=== PATIENT | male | born 1955 | race Caucasian/White ===

== ENCOUNTER 2018-04-10 08:02 | Emergency (ER) | END 2018-04-10 09:30 | disposition home or self-care (01) ==

== ENCOUNTER 2018-04-15 19:46 | Emergency (ER) | END 2018-04-15 22:45 | disposition home or self-care (01) ==

== ENCOUNTER 2018-04-26 19:33 | Emergency (ER) | END 2018-04-26 23:20 | disposition home or self-care (01) ==